=== PATIENT | male | born 1995 | race African-American/Black ===

== ENCOUNTER 2021-08-10 21:51 | Emergency (ER) | payer OTHER ==
[~2021-08-10] VITALS: Ht 190.5 cm; Wt 63.5 kg
--- NOTE | 2021-08-10 22:10 | NUR ---
pt came in by [facility] for sob, pt states he took cocaine and MJ
--- NOTE | 2021-08-10 22:13 | NUR ---
Dr. De Leon at bedside for MSE.
[2021-08-10] MEDS ORDERED: IV NORMAL SALINE 1000 ML BAG IV ONE (22:15)
[2021-08-10] MEDS ORDERED: ONDANSETRON 4 MG/2 ML VIAL IV ONE (22:15)
[2021-08-10 22:55] LABS: HEMATOCRIT 46.2 % (36.7-47.1); MEAN CORPUSCULAR HEMOGLOBIN 29.9 uug (23.8-33.4); PLATELET COUNT (AUTO) 270 K/uL (152-348)
[2021-08-10 22:58] LABS: CREATININE 1.5 mg/dL (0.6-1.3); POTASSIUM 3.7 mmol/L (3.5-5.1)
[2021-08-10] MEDS ORDERED: ONDANSETRON 4 MG/2 ML VIAL ONE (22:58)
[2021-08-10 22:59] LABS: ETHANOL < 3 MG/DL (0-0)
[2021-08-10 23:03] LABS: BILIRUBIN,DIRECT 0.2 mg/dL (0.0-0.2); BILIRUBIN,TOTAL 0.9 mg/dL (0.2-1.0); TOTAL PROTEIN, SERUM 9.4 g/dL (6.4-8.2)
[2021-08-10 23:40] LABS: *AMPHETAMINE, URINE NEGATIVE (NEGATIVE); *CANNABINOID, URINE NEGATIVE (NEGATIVE); *COCCAINE, URINE NEGATIVE (NEGATIVE); *OPIATE, URINE NEGATIVE (NEGATIVE); *PHENCYCLIDINE SCREEN,URINE NEGATIVE (NEGATIVE)
--- NOTE | 2021-08-11 00:48 | NUR ---
Patient does not wish to proceed with medical care recommended by Dr. De Leon. Patient given information related to possible complications, up to and including , which could occur as a result of leaving the hospital at this time. Patient verbalizes understanding of risks involved due to leaving against medical advice. Patient has signed AMA form. pt left the hospital ambulatory with his father.
[2021-08-11 00:50] VITALS: BP 123/61
== END 2021-08-11 00:51 | disposition left against medical advice (07) ==
LOC: ER 21:54
DX: R55 Syncope and collapse (principal); R00.1 Bradycardia, unspecified; D72.829 Elevated white blood cell count, unspecified; F17.210 Nicotine dependence, cigarettes, uncomplicated; J45.909 Unspecified asthma, uncomplicated; F14.90 Cocaine use, unspecified, uncomplicated; Z53.29 Procedure and treatment not carried out because of patient's decision for other reasons
CPT/HCPCS: 36415; 80048; 80076; 80307; 80320; 84484; 85025; 85379; 93005; 96361; 96374; 99284; 99406; J2405; A4663; G0480; J7040